=== PATIENT | male | born 1975 | race American Indian/Alaskan Native ===

== ENCOUNTER → 2018-06-17 | Outpatient (CLI) | payer OTHER | LOC: MHCPAIN 15:34 | DX: G89.29 Other chronic pain (principal); M79.10 Myalgia, unspecified site; M54.6 Pain in thoracic spine | CPT/HCPCS: G0463 ==

== ENCOUNTER → 2019-08-13 | Outpatient (CLI) | payer OTHER | LOC: COL.VAS 08-12 14:00 | DX: I36.1 Nonrheumatic tricuspid (valve) insufficiency (principal) ==

== ENCOUNTER → 2021-09-25 | Outpatient (CLI) | payer OTHER | LOC: COL.VAS 12:46 | DX: R06.02 Shortness of breath (principal) ==